=== PATIENT | male | born 1965 | race Caucasian/White ===

== ENCOUNTER → 2024-11-04 07:38 | Outpatient (BNVA) | payer OTHER, SELFPAY | PROVIDERS: Family Provider Family Medicine; PCP Family Medicine; Visit Provider Family Medicine | DX: R41.3 Other amnesia (principal); R61 Generalized hyperhidrosis; R68.82 Decreased libido | CPT/HCPCS: 80053; 82040; 82607; 83036; 84270; 84403; 85025 ==